=== PATIENT | male | born 1985 | race Caucasian/White ===

== ENCOUNTER 2017-04-30 16:47 | Emergency (ER) | payer OTHER ==
[~2017-04-30] VITALS: Wt 72.6 kg
[~2017-04-30 16:47] MED LIST: ALBUTEROL0.09 MG/AC IH; AMOXICILLIN500 M2 PO; AVIDOXY100 MG PO; DELTASONE20 M1 PO; FLEXERIL10 MG PO; FLOMAX0.4 MG PO; HYDROCODONE BIT1 T11 PO; IBU800 M1 PO; INHALER; KEFLEX500 M1 PO; MEDROL DOSEPAK4 MG PO; MOTRIN800 MG PO; NAPROSYN500 MG PO; NKHM; NORCO 325 MG-51 TAB PO; PARAFON FORTE500 MG PO; PENICILLIN VK500 MG PO; PREDNISONE10 MG PO; PROAIR HFA8.5 GM IH; PROZAC10 MG PO; ROBITUSSIN AC 110 ML PO; VIBRAMYCIN100 MG PO; WELLBUTRIN SR150 MG PO; ZITHROMAX250 MG PO
[2017-04-30] MEDS ORDERED: AMOXICILLIN500 M2 PO (17:19)
[2017-04-30] MEDS ORDERED: ZYRTEC10 MG PO (17:19)
[2017-04-30] MEDS ORDERED: MEDROL DOSEPAK4 MG PO (17:19)
== END 2017-04-30 17:25 | disposition home or self-care (01) ==
LOC: ED 16:47
DX: J40 Bronchitis, not specified as acute or chronic (principal); J45.909 Unspecified asthma, uncomplicated; Z79.899 Other long term (current) drug therapy

== ENCOUNTER 2017-06-12 20:20 | Emergency (ER) | payer OTHER ==
[~2017-06-12] VITALS: Ht 175.2 cm; Wt 77.1 kg
[~2017-06-12 20:20] MED LIST changes: +ZYRTEC10 MG PO
[2017-06-12 21:26] LABS: BASO % 0.5 % (0.0-1.0); EOS # 0.4 10*3/uL (0.0-0.4); EOS % 5.7 % (1.0-4.0); HEMATOCRIT 40.5 % (42.0-52.0); HEMOGLOBIN 13.6 g/dl (14.0-18.0); LYMPH % 31.1 % (27.0-41.0); MEAN CORPUSCULAR HGB 27.9 pg (27.0-31.0); MEAN CORPUSCULAR HGB CONC 33.6 g/dl (33.0-37.0); MEAN PLATELET VOLUME 9.8 fl (9.6-12.3); MONO # 0.5 10*3/uL (0.1-1.0); MONO % 7.3 % (3.0-9.0); NEUT # 3.5 10*3/uL (2.3-7.9); NEUT % 55.2 % (47.0-73.0); PLATELET COUNT AUTOMATED 218 10*3/uL (130-400); RED BLOOD COUNT 4.88 10*6/uL (4.50-5.90); RED CELL DISTRI WIDTH 13.2 % (0-14.5); WHITE BLOOD COUNT 6.3 10*3/uL (4.8-10.8)
[2017-06-12 21:41] LABS: ALBUMIN 3.9 gm/dl (3.1-4.5); ALKALINE PHOSPHATASE 114 U/L (45-117); BUN 7 mg/dl (7-24); CHLORIDE 104 mmol/L (98-107); CREATININE 1.03 mg/dL (0.70-1.30); POTASSIUM 3.5 mmol/L (3.5-5.1); SGOT/AST 16 IU/L (3-35); SGPT/ALT 22 U/L (12-78); SODIUM 139 mmol/L (136-145)
[2017-06-12] MEDS ORDERED: ZITHROMAX250 MG PO (22:13)
[2017-06-12] MEDS ORDERED: PREDNISONE10 MG PO (22:13)
== END 2017-06-12 22:43 | disposition home or self-care (01) ==
LOC: ED 20:20
PROVIDERS: Nurse Practitioner Family
DX: J40 Bronchitis, not specified as acute or chronic (principal); Z87.442 Personal history of urinary calculi; Z87.01 Personal history of pneumonia (recurrent); Z79.899 Other long term (current) drug therapy

== ENCOUNTER 2017-12-05 21:28 | Emergency (ER) | payer OTHER ==
[~2017-12-05] VITALS: Ht 175.2 cm; Wt 79.4 kg
== END 2017-12-05 22:46 | disposition home or self-care (01) ==
LOC: ED 21:28
DX: R51 Headache (principal); Z79.899 Other long term (current) drug therapy

== ENCOUNTER 2018-03-11 00:08 | Emergency (ER) | payer OTHER ==
[~2018-03-11] VITALS: Wt 77.1 kg
[2018-03-11] MEDS ORDERED: ZITHROMAX250 MG PO (01:34)
[2018-03-11] MEDS ORDERED: DELTASONE20 M1 PO (01:34)
[2018-03-11] MEDS ORDERED: PROAIR HFA8.5 GM INH (13:47)
== END 2018-03-11 01:41 | disposition home or self-care (01) ==
LOC: ED 00:08
DX: J40 Bronchitis, not specified as acute or chronic (principal); J45.909 Unspecified asthma, uncomplicated; Z79.899 Other long term (current) drug therapy

== ENCOUNTER 2018-05-06 20:52 | Emergency (ER) | payer OTHER ==
[~2018-05-06] VITALS: Ht 175.2 cm; Wt 74.8 kg
[~2018-05-06 20:52] MED LIST changes: +PROAIR HFA8.5 GM INH
== END 2018-05-06 21:59 | disposition home or self-care (01) ==
LOC: ED 20:52
DX: R51 Headache (principal); F17.200 Nicotine dependence, unspecified, uncomplicated; Z79.899 Other long term (current) drug therapy; Z87.442 Personal history of urinary calculi

== ENCOUNTER 2018-11-14 09:17 | Emergency (ER) | payer SELFPAY ==
[~2018-11-14] VITALS: Ht 175.2 cm; Wt 77.1 kg
[2018-11-14 10:11] LABS: BASO % 0.3 % (0.0-1.0); EOS # 0.1 10*3/uL (0.0-0.4); EOS % 1.5 % (1.0-4.0); HEMATOCRIT 44.7 % (42.0-52.0); HEMOGLOBIN 14.5 g/dl (14.0-18.0); LYMPH # 1.6 10*3/uL (1.3-4.4); LYMPH % 25.9 % (27.0-41.0); MEAN CELL VOLUME 85.5 fl (80.0-94.0); MEAN CORPUSCULAR HGB 27.7 pg (27.0-31.0); MEAN CORPUSCULAR HGB CONC 32.4 g/dl (33.0-37.0); MEAN PLATELET VOLUME 9.8 fl (9.6-12.3); MONO # 0.4 10*3/uL (0.1-1.0); MONO % 5.7 % (3.0-9.0); NEUT # 4.1 10*3/uL (2.3-7.9); NEUT % 66.4 % (47.0-73.0); PLATELET COUNT AUTOMATED 218 10*3/uL (130-400); RED BLOOD COUNT 5.23 10*6/uL (4.50-5.90); RED CELL DISTRI WIDTH 13.2 % (0-14.5); WHITE BLOOD COUNT 6.1 10*3/uL (4.8-10.8)
[2018-11-14 10:25] LABS: ALBUMIN 3.9 gm/dl (3.1-4.5); ALKALINE PHOSPHATASE 114 U/L (45-117); BUN 10 mg/dl (7-24); CHLORIDE 107 mmol/L (98-107); CREATININE 1.22 mg/dL (0.70-1.30); POTASSIUM 3.9 mmol/L (3.5-5.1); SGOT/AST 16 IU/L (3-35); SGPT/ALT 27 U/L (12-78); SODIUM 141 mmol/L (136-145); TOTAL PROTEIN 7.6 gm/dL (6.4-8.2)
== END 2018-11-14 09:24 | disposition home or self-care (01) ==
LOC: ED 09:17
PROVIDERS: Nurse Practitioner Family
DX: R51 Headache (principal); H53.149 Visual discomfort, unspecified; R11.2 Nausea with vomiting, unspecified; Z79.899 Other long term (current) drug therapy; Z79.2 Long term (current) use of antibiotics

== ENCOUNTER 2019-04-02 18:24 | Emergency (ER) | payer OTHER ==
[~2019-04-02] VITALS: Ht 175.2 cm; Wt 88.5 kg
[2019-04-02 18:55] LABS: BILIRUBIN NEGATIVE (NEGATIVE); BLOOD NEGATIVE (NEGATIVE); CLARITY CLEAR (CLEAR); COLOR YELLOW (YELLOW); GLUCOSE NEGATIVE (NEGATIVE); KETONE NEGATIVE (NEGATIVE); LEUKO ESTERASE NEGATIVE (NEGATIVE); NITRITE NEGATIVE (NEGATIVE); SPECIFIC GRAVITY 1.015 (1.005-1.030)
[2019-04-02 19:06] LABS: BACTERIA 1+
[2019-04-02 19:51] LABS: BASO % 0.5 % (0.0-1.0); EOS # 0.3 10*3/uL (0.0-0.4); HEMATOCRIT 43.6 % (42.0-52.0); LYMPH # 1.6 10*3/uL (1.3-4.4); LYMPH % 25.4 % (27.0-41.0); MEAN CELL VOLUME 85.3 fl (80.0-94.0); MEAN CORPUSCULAR HGB 27.4 pg (27.0-31.0); MEAN CORPUSCULAR HGB CONC 32.1 g/dl (33.0-37.0); MEAN PLATELET VOLUME 10.2 fl (9.6-12.3); MONO # 0.5 10*3/uL (0.1-1.0); MONO % 8.3 % (3.0-9.0); NEUT % 61.5 % (47.0-73.0); PLATELET COUNT AUTOMATED 236 10*3/uL (130-400); RED BLOOD COUNT 5.11 10*6/uL (4.50-5.90); RED CELL DISTRI WIDTH 13.8 % (0-14.5); WHITE BLOOD COUNT 6.4 10*3/uL (4.8-10.8)
[2019-04-02 20:07] LABS: ALBUMIN 3.6 gm/dl (3.1-4.5); ALKALINE PHOSPHATASE 91 U/L (45-117); BUN 17 mg/dl (7-24); CHLORIDE 108 mmol/L (98-107); CREATININE 1.29 mg/dL (0.70-1.30); POTASSIUM 3.8 mmol/L (3.5-5.1); SGOT/AST 41 IU/L (3-35); SGPT/ALT 84 U/L (12-78); SODIUM 140 mmol/L (136-145); TOTAL PROTEIN 7.2 gm/dL (6.4-8.2)
== END 2019-04-02 20:40 | disposition home or self-care (01) ==
LOC: ED 18:24
PROVIDERS: Nurse Practitioner Family
DX: S16.1XXA Strain of muscle, fascia and tendon at neck level, initial encounter (principal); S70.02XA Contusion of left hip, initial encounter; S20.212A Contusion of left front wall of thorax, initial encounter; S60.512A Abrasion of left hand, initial encounter; S00.81XA Abrasion of other part of head, initial encounter; M54.5 Low back pain; R10.32 Left lower quadrant pain; R10.12 Left upper quadrant pain; R20.0 Anesthesia of skin; R20.2 Paresthesia of skin; F17.200 Nicotine dependence, unspecified, uncomplicated; Z79.899 Other long term (current) drug therapy; Z79.2 Long term (current) use of antibiotics; V53.5XXA Driver of pick-up truck or van injured in collision with car, pick-up truck or van in traffic accident, initial encounter; Y93.I9 Activity, other involving external motion; Y92.488 Other paved roadways as the place of occurrence of the external cause; Y99.8 Other external cause status

== ENCOUNTER 2019-05-02 18:12 | Emergency (ER) | payer BC ==
[~2019-05-02] VITALS: Ht 175.2 cm; Wt 86.2 kg
--- NOTE | ~2019-05-02 | EKG ---
[place], [place] ELECTROCARDIOGRAM REPORT NAME: DINORAH DENNY UNIT #: [id number] ROOM: DOCTOR: ARSLAN DRAFT REPORT BIRTHDATE: [birth year] [facility] Test Date: 2019-05-02 Test Time: 18:17:37 Pat Name: DINORAH DENNY Department: Room: Gender: [employer]ceiving [employer]: : 1985 Requested By: DON VARGAS Order Number: [id number] Reading MD: Apolinar Wan MD Measurements Intervals [place] Rate: 68 P: 70 ME: 171 QRS: 24 QRSD: 95 T: 41 QT: 376 QTc: 400 Interpretive Statements Sinus rhythm ST elev, probable normal early repol pattern Electronically Signed On 05-06-2019 9:50:53 PDT by Apolinar Wan MD CM:EKGRPT:ELECTROCARDIOGRAM REPORT 1817 [id number] DON MIRANDA DRAFT REPORT DON VARGAS DO
[2019-05-02 18:40] LABS: BASO % 0.6 % (0.0-1.0); EOS # 0.5 10*3/uL (0.0-0.4); EOS % 6.3 % (1.0-4.0); HEMATOCRIT 43.8 % (42.0-52.0); HEMOGLOBIN 14.4 g/dl (14.0-18.0); LYMPH # 2.6 10*3/uL (1.3-4.4); LYMPH % 35.9 % (27.0-41.0); MEAN CELL VOLUME 83.6 fl (80.0-94.0); MEAN CORPUSCULAR HGB 27.5 pg (27.0-31.0); MEAN CORPUSCULAR HGB CONC 32.9 g/dl (33.0-37.0); MEAN PLATELET VOLUME 10.1 fl (9.6-12.3); MONO # 0.5 10*3/uL (0.1-1.0); NEUT # 3.6 10*3/uL (2.3-7.9); NEUT % 49.9 % (47.0-73.0); PLATELET COUNT AUTOMATED 221 10*3/uL (130-400); RED BLOOD COUNT 5.24 10*6/uL (4.50-5.90); RED CELL DISTRI WIDTH 13.2 % (0-14.5); WHITE BLOOD COUNT 7.2 10*3/uL (4.8-10.8)
[2019-05-02 18:55] LABS: ACT PARTIAL THROMBO TIME 27.8 SECONDS (20.0-32.1)
[2019-05-02 18:59] LABS: ALBUMIN 3.9 gm/dl (3.1-4.5); ALKALINE PHOSPHATASE 116 U/L (45-117); BUN 15 mg/dl (7-24); CHLORIDE 108 mmol/L (98-107); CREATININE 1.16 mg/dL (0.70-1.30); POTASSIUM 3.7 mmol/L (3.5-5.1); SGOT/AST 27 IU/L (3-35); SGPT/ALT 46 U/L (12-78); SODIUM 140 mmol/L (136-145); TOTAL PROTEIN 7.4 gm/dL (6.4-8.2)
[2019-05-02 19:04] LABS: TROPONIN I < 0.015 ng/ml (<0.045)
[2019-05-02] MEDS ORDERED: PROAIR HFA8.5 GM INH (20:00)
[2019-05-02] MEDS ORDERED: PREDNISONE10 MG PO (20:00)
== END 2019-05-02 21:05 | disposition home or self-care (01) ==
LOC: ED 18:12
PROVIDERS: Emergency Medicine
DX: J45.901 Unspecified asthma with (acute) exacerbation (principal); Z79.899 Other long term (current) drug therapy

== ENCOUNTER 2019-06-16 20:31 | Emergency (ER) | payer BC ==
[~2019-06-16] VITALS: Ht 175.2 cm; Wt 88.5 kg
[2019-06-16 20:50] LABS: BASO % 0.3 % (0.0-1.0); EOS # 0.4 10*3/uL (0.0-0.4); EOS % 3.7 % (1.0-4.0); HEMATOCRIT 43.3 % (42.0-52.0); HEMOGLOBIN 14.1 g/dl (14.0-18.0); LYMPH # 1.3 10*3/uL (1.3-4.4); MEAN CELL VOLUME 84.6 fl (80.0-94.0); MEAN CORPUSCULAR HGB 27.5 pg (27.0-31.0); MEAN CORPUSCULAR HGB CONC 32.6 g/dl (33.0-37.0); MEAN PLATELET VOLUME 9.6 fl (9.6-12.3); MONO # 0.8 10*3/uL (0.1-1.0); MONO % 8.2 % (3.0-9.0); NEUT # 6.9 10*3/uL (2.3-7.9); NEUT % 73.5 % (47.0-73.0); PLATELET COUNT AUTOMATED 227 10*3/uL (130-400); RED BLOOD COUNT 5.12 10*6/uL (4.50-5.90); RED CELL DISTRI WIDTH 13.7 % (0-14.5); WHITE BLOOD COUNT 9.4 10*3/uL (4.8-10.8)
[2019-06-16 21:00] LABS: ACT PARTIAL THROMBO TIME 27.1 SECONDS (20.0-32.1)
[2019-06-16 21:28] LABS: ALBUMIN 3.5 gm/dl (3.1-4.5); ALKALINE PHOSPHATASE 107 U/L (45-117); BUN 12 mg/dl (7-24); CHLORIDE 107 mmol/L (98-107); CREATININE 1.24 mg/dL (0.70-1.30); SGOT/AST 30 IU/L (3-35); SGPT/ALT 55 U/L (12-78); SODIUM 139 mmol/L (136-145); TOTAL PROTEIN 7.2 gm/dL (6.4-8.2); TROPONIN I < 0.015 ng/ml (<0.045)
[2019-06-17] MEDS ORDERED: GUAIFEN-CODEINE5 ML PO (00:42)
== END 2019-06-17 00:50 | disposition home or self-care (01) ==
LOC: ED 20:31
PROVIDERS: Emergency Medicine
DX: J45.909 Unspecified asthma, uncomplicated (principal); R07.89 Other chest pain; Z79.899 Other long term (current) drug therapy

== ENCOUNTER 2020-02-22 00:09 | Emergency (ER) | payer BC ==
[~2020-02-22] VITALS: Ht 175.2 cm; Wt 86.2 kg
[~2020-02-22 00:09] MED LIST changes: +GUAIFEN-CODEINE5 ML PO
== END 2020-02-22 01:11 | disposition home or self-care (01) ==
LOC: ED 00:09
DX: S05.02XA Injury of conjunctiva and corneal abrasion without foreign body, left eye, initial encounter (principal); Z79.899 Other long term (current) drug therapy; X58.XXXA Exposure to other specified factors, initial encounter; Y93.89 Activity, other specified; Y92.89 Other specified places as the place of occurrence of the external cause; Y99.8 Other external cause status

== ENCOUNTER 2020-09-29 22:02 | Emergency (ER) | payer BC | END 2020-09-29 23:50 | disposition home or self-care (01) | LOC: ED 22:02 | DX: R51.9 Headache, unspecified (principal); R11.0 Nausea; J45.909 Unspecified asthma, uncomplicated; F32.9 Major depressive disorder, single episode, unspecified; Z79.899 Other long term (current) drug therapy ==

== ENCOUNTER 2020-10-15 20:52 | Emergency (ER) | payer BC ==
[~2020-10-15] VITALS: Ht 175.2 cm; Wt 86.2 kg
== END 2020-10-15 23:41 | disposition home or self-care (01) ==
LOC: ED 20:52
DX: G43.909 Migraine, unspecified, not intractable, without status migrainosus (principal); F32.9 Major depressive disorder, single episode, unspecified; J45.909 Unspecified asthma, uncomplicated; Z87.442 Personal history of urinary calculi; Z79.899 Other long term (current) drug therapy

== ENCOUNTER 2020-11-28 05:57 | Emergency (ER) | payer BC ==
[~2020-11-28] VITALS: Ht 175.2 cm; Wt 81.6 kg
[2020-11-28] MEDS ORDERED: TYLENOL325 M1 PO (08:07)
[2020-11-28] MEDS ORDERED: NAPROSYN500 MG PO (08:07)
[2020-11-28] MEDS ORDERED: CYCLOBENZAPRINE10 MG PO (08:07)
== END 2020-11-28 08:44 | disposition home or self-care (01) ==
LOC: ED 05:57
DX: M54.12 Radiculopathy, cervical region (principal); J45.909 Unspecified asthma, uncomplicated; G43.909 Migraine, unspecified, not intractable, without status migrainosus; Z79.899 Other long term (current) drug therapy

== ENCOUNTER 2021-01-07 05:42 | Emergency (ER) | payer BC ==
[~2021-01-07] VITALS: Ht 175.2 cm; Wt 83.9 kg
[~2021-01-07 05:42] MED LIST changes: +CYCLOBENZAPRINE10 MG PO; +TYLENOL325 M1 PO
[2021-01-07] MEDS ORDERED: DOXYCYCLINE100 MG PO (06:48)
[2021-01-07] MEDS ORDERED: COMPLETE ALLERG25 M2 PO (06:48)
== END 2021-01-07 07:18 | disposition home or self-care (01) ==
LOC: ED 05:42
DX: S20.362A Insect bite (nonvenomous) of left front wall of thorax, initial encounter (principal); G43.909 Migraine, unspecified, not intractable, without status migrainosus; Z87.891 Personal history of nicotine dependence; Z98.890 Other specified postprocedural states; W57.XXXA Bitten or stung by nonvenomous insect and other nonvenomous arthropods, initial encounter; Y93.89 Activity, other specified; Y92.89 Other specified places as the place of occurrence of the external cause; Y99.8 Other external cause status

== ENCOUNTER → 2021-06-26 | Outpatient (CLI) | payer BC ==
[~2021-06-26] MED LIST changes: +COMPLETE ALLERG25 M2 PO; +DOXYCYCLINE100 MG PO
[2021-06-26 09:36] LABS: MEAN CELL VOLUME 83.8 fl (80.0-94.0); MEAN CORPUSCULAR HGB 27.1 pg (27.0-31.0); MEAN CORPUSCULAR HGB CONC 32.3 g/dl (33.0-37.0); MEAN PLATELET VOLUME 10.1 fl (9.6-12.3); RED BLOOD COUNT 5.73 10*6/uL (4.50-5.90); RED CELL DISTRI WIDTH 12.6 % (0-14.5); WHITE BLOOD COUNT 7.5 10*3/uL (4.8-10.8)
[2021-06-26 09:52] LABS: ALBUMIN 3.9 gm/dl (3.1-4.5); ALKALINE PHOSPHATASE 104 U/L (45-117); BUN 12 mg/dl (7-24); CHLORIDE 109 mmol/L (98-107); CHOLESTEROL 213 mg/dL (<200); CREATININE 1.27 mg/dL (0.70-1.30); LDL CHOLESTEROL 141 mg/dL (9-159); POTASSIUM 4.2 mmol/L (3.5-5.1); SGOT/AST 29 IU/L (3-35); SGPT/ALT 45 U/L (12-78); SODIUM 138 mmol/L (136-145); TOTAL PROTEIN 7.5 gm/dL (6.4-8.2); TRIGLYCERIDES 62 mg/dl (<150)
== END | disposition home or self-care (01) ==
LOC: LAB 08:31
PROVIDERS: ATTEND Family Medicine
DX: Z00.00 Encounter for general adult medical examination without abnormal findings (principal); I10 Essential (primary) hypertension

== ENCOUNTER → 2021-08-01 | Outpatient (CLI) | payer BC ==
[2021-08-01 15:36] LABS: FREE T4 0.97 ng/dl (0.76-1.46)
[2021-08-01 15:42] LABS: THYROID STIM HORMONE (HS) 1.65 uIU/ml (0.358-4.75)
== END | disposition home or self-care (01) ==
LOC: LAB 14:51
PROVIDERS: ATTEND Family Medicine
DX: Z00.00 Encounter for general adult medical examination without abnormal findings (principal); I10 Essential (primary) hypertension; E29.1 Testicular hypofunction

== ENCOUNTER 2021-08-19 23:27 | Emergency (ER) | payer BC ==
[~2021-08-19] VITALS: Ht 175.2 cm; Wt 86.2 kg
[2021-08-20] MEDS ORDERED: ATIVAN0.5 MG PO (00:28)
== END 2021-08-20 02:55 | disposition home or self-care (01) ==
LOC: ED 23:27
DX: F41.9 Anxiety disorder, unspecified (principal)

== ENCOUNTER 2021-08-20 02:49 | Emergency (ER) | payer BC ==
[~2021-08-20] VITALS: Ht 175.2 cm; Wt 86.2 kg
[~2021-08-20 02:49] MED LIST changes: +ATIVAN0.5 MG PO
[2021-08-20 03:16] LABS: BASO % 0.4 % (0.0-1.0); EOS # 0.1 10*3/uL (0.0-0.4); EOS % 1.3 % (1.0-4.0); HEMATOCRIT 43.8 % (42.0-52.0); LYMPH # 1.6 10*3/uL (1.3-4.4); LYMPH % 23.9 % (27.0-41.0); MEAN CELL VOLUME 84.9 fl (80.0-94.0); MEAN CORPUSCULAR HGB 27.3 pg (27.0-31.0); MEAN CORPUSCULAR HGB CONC 32.2 g/dl (33.0-37.0); MEAN PLATELET VOLUME 9.8 fl (9.6-12.3); MONO # 0.4 10*3/uL (0.1-1.0); MONO % 5.6 % (3.0-9.0); NEUT # 4.6 10*3/uL (2.3-7.9); NEUT % 68.5 % (47.0-73.0); PLATELET COUNT AUTOMATED 228 10*3/uL (130-400); RED BLOOD COUNT 5.16 10*6/uL (4.50-5.90); RED CELL DISTRI WIDTH 13.6 % (0-14.5); WHITE BLOOD COUNT 6.8 10*3/uL (4.8-10.8)
[2021-08-20 03:30] LABS: ALBUMIN 4.1 gm/dl (3.1-4.5); ALKALINE PHOSPHATASE 116 U/L (45-117); BUN 7 mg/dl (7-24); CHLORIDE 108 mmol/L (98-107); CREATININE 1.22 mg/dL (0.70-1.30); POTASSIUM 3.5 mmol/L (3.5-5.1); SGOT/AST 27 IU/L (3-35); SGPT/ALT 43 U/L (12-78); SODIUM 140 mmol/L (136-145); TOTAL PROTEIN 7.6 gm/dL (6.4-8.2)
[2021-08-20 03:32] LABS: ACETAMINOPHEN (TYLENOL) < 5.0 ug/ml (10-30); ETHYL ALCOHOL < 3.0 mg/dl (<3)
[2021-08-20 10:52] LABS: BILIRUBIN Negative (Negative); BLOOD Negative (Negative); CLARITY Clear (Clear); COLOR Yellow (Yellow); GLUCOSE Negative (Negative); KETONE Negative (Negative); LEUKO ESTERASE Negative (Negative); NITRITE Negative (Negative); PH 6.5 (4.5-8.0); UROBILINOGEN 0.2 E.U./dl (0.0-1.0)
[2021-08-20 11:02] LABS: BACTERIA TRACE; EPITHELIAL CELLS 0-2; MUCOUS 1+; URINE AMPHETAMINES < 1000 (1000ng/ml); URINE BARBITURATES < 200 (200ng/ml); URINE BENZODIAZEPINES < 200 (200ng/ml); URINE CANNABINOIDS (THC) < 50 (50ng/ml); URINE COCAINE < 300 (300ng/ml); URINE METHADONE < 300 (300ng/ml); URINE OPIATES < 300 (300ng/ml)
[2021-08-20 11:04] LABS: URINE PHENCYCLIDINE < 25 (25ng/ml)
== END 2021-08-20 12:05 | disposition home or self-care (01) ==
LOC: ED 02:49
PROVIDERS: Emergency Medicine
DX: F43.20 Adjustment disorder, unspecified (principal); F41.9 Anxiety disorder, unspecified; Z79.2 Long term (current) use of antibiotics; Z79.899 Other long term (current) drug therapy

== ENCOUNTER → 2022-03-24 | Outpatient (CLI) | payer BC ==
[2022-03-24 17:44] LABS: HEMATOCRIT 40.7 % (42.0-52.0); MEAN CELL VOLUME 86.4 fl (80.0-94.0); MEAN CORPUSCULAR HGB 28.7 pg (27.0-31.0); MEAN CORPUSCULAR HGB CONC 33.2 g/dl (33.0-37.0); MEAN PLATELET VOLUME 9.8 fl (9.6-12.3); RED BLOOD COUNT 4.71 10*6/uL (4.50-5.90); RED CELL DISTRI WIDTH 12.9 % (0-14.5); WHITE BLOOD COUNT 5.9 10*3/uL (4.8-10.8)
[2022-03-24 18:04] LABS: ALKALINE PHOSPHATASE 98 U/L (45-117); BUN 13 mg/dl (7-24); CHLORIDE 108 mmol/L (98-107); CHOLESTEROL 230 mg/dL (<200); CREATININE 1.28 mg/dL (0.70-1.30); LDL CHOLESTEROL 146 mg/dL (9-159); POTASSIUM 3.6 mmol/L (3.5-5.1); SGOT/AST 26 IU/L (3-35); SGPT/ALT 41 U/L (12-78); SODIUM 137 mmol/L (136-145); TRIGLYCERIDES 184 mg/dl (<150)
[2022-03-24 18:25] LABS: VITAMIN D, 25-HYDROXY 15.3 ng/mL (30-100)
[2022-03-29 22:05] LABS: TESTOSTERONE FREE, (DIRECT) 5.4 pg/mL (8.7-25.1)
== END | disposition home or self-care (01) ==
LOC: LAB 17:11
PROVIDERS: ATTEND Family Medicine
DX: F41.1 Generalized anxiety disorder (principal); F39 Unspecified mood [affective] disorder; R53.83 Other fatigue; E55.9 Vitamin D deficiency, unspecified; E74.00 Glycogen storage disease, unspecified

== ENCOUNTER 2022-07-22 02:46 | Emergency (ER) | payer BC ==
[~2022-07-22] VITALS: Ht 175.2 cm; Wt 93.0 kg
[2022-07-22] MEDS ORDERED: ESCITALOPRAM OX20 MG PO (03:00)
[2022-07-22] MEDS ORDERED: LAMOTRIGINE100 MG PO (03:00)
[2022-07-22] MEDS ORDERED: TESTOSTERO200 MG/1 M IM (03:01)
[2022-07-22] MEDS ORDERED: LOSARTAN POTAS100 M1 PO (03:01)
[2022-07-22] MEDS ORDERED: CLINDAMYCIN HC300 MG PO (03:15)
[2022-07-22] MEDS ORDERED: PREDNISONE20 M1 PO (03:15)
== END 2022-07-22 03:45 | disposition home or self-care (01) ==
LOC: ED 02:46
DX: R59.0 Localized enlarged lymph nodes (principal); Z79.899 Other long term (current) drug therapy

== ENCOUNTER 2022-12-25 00:18 | Emergency (ER) | payer SELFPAY ==
[~2022-12-25] VITALS: Ht 175.2 cm; Wt 88.5 kg
[~2022-12-25 00:18] MED LIST changes: +CLINDAMYCIN HC300 MG PO; +ESCITALOPRAM OX20 MG PO; +LAMOTRIGINE100 MG PO; +LOSARTAN POTAS100 M1 PO; +PREDNISONE20 M1 PO; +TESTOSTERO200 MG/1 M IM
== END 2022-12-25 01:41 | disposition home or self-care (01) ==
LOC: ED 00:18
DX: F41.9 Anxiety disorder, unspecified (principal); R00.2 Palpitations; Z79.899 Other long term (current) drug therapy

== ENCOUNTER 2023-02-20 10:20 | Emergency (ER) | payer BC ==
[~2023-02-20] VITALS: Ht 175.2 cm; Wt 97.5 kg
[2023-02-20 11:52] LABS: BASO % 0.6 % (0.0-1.0); EOS # 0.1 10*3/uL (0.0-0.4); EOS % 1.7 % (1.0-4.0); HEMATOCRIT 45.5 % (42.0-52.0); LYMPH # 1.7 10*3/uL (1.3-4.4); LYMPH % 35.1 % (27.0-41.0); MEAN CELL VOLUME 85.5 fl (80.0-94.0); MEAN CORPUSCULAR HGB 27.3 pg (27.0-31.0); MEAN CORPUSCULAR HGB CONC 31.9 g/dl (33.0-37.0); MEAN PLATELET VOLUME 10.1 fl (9.6-12.3); MONO # 0.5 10*3/uL (0.1-1.0); MONO % 9.3 % (3.0-9.0); NEUT # 2.6 10*3/uL (2.3-7.9); NEUT % 53.1 % (47.0-73.0); PLATELET COUNT AUTOMATED 210 10*3/uL (130-400); RED BLOOD COUNT 5.32 10*6/uL (4.50-5.90); RED CELL DISTRI WIDTH 13.4 % (0-14.5); WHITE BLOOD COUNT 4.8 10*3/uL (4.8-10.8)
[2023-02-20 12:14] LABS: ALKALINE PHOSPHATASE 108 U/L (46-116); BUN 12 mg/dl (9-23); CHLORIDE 100 mmol/L (98-107); LIPASE 31 U/L (12-53); POTASSIUM 3.8 mmol/L (3.4-5.1); SGPT/ALT 41 U/L (10-49); TOTAL PROTEIN 7.5 gm/dL (6.0-8.0)
[2023-02-20 12:28] LABS: BILIRUBIN Negative (Negative); BLOOD 3+ (Negative); CLARITY Clear (Clear); COLOR Yellow (Yellow); GLUCOSE Negative (Negative); KETONE Negative (Negative); LEUKO ESTERASE Trace (Negative); NITRITE Negative (Negative); PH 5.5 (4.5-8.0); SPECIFIC GRAVITY >= 1.030 (1.001-1.030)
[2023-02-20 13:14] LABS: RBC TNTC rbc/hpf (0-2)
[2023-02-20] MEDS ORDERED: PERCOCET 5-3251 EACH PO (15:47)
[2023-02-20] MEDS ORDERED: ONDANSETRON4 MG SL (15:47)
[2023-02-20] MEDS ORDERED: Motrin,Rufen800 MG PO (15:47)
[2023-02-20] MEDS ORDERED: FLOMAX0.4 MG PO (15:47)
== END 2023-02-20 15:53 | disposition home or self-care (01) ==
LOC: ED 10:20
PROVIDERS: Emergency Medicine
DX: R10.9 Unspecified abdominal pain (principal); R31.9 Hematuria, unspecified; F32.A Depression, unspecified; J45.909 Unspecified asthma, uncomplicated; I10 Essential (primary) hypertension; Z87.442 Personal history of urinary calculi; G43.909 Migraine, unspecified, not intractable, without status migrainosus; Z98.890 Other specified postprocedural states

== ENCOUNTER → 2023-04-12 | Outpatient (CLI) | payer BC ==
[~2023-04-12] MED LIST changes: +Motrin,Rufen800 MG PO; +ONDANSETRON4 MG SL; +PERCOCET 5-3251 EACH PO
[2023-04-12 10:38] LABS: HEMATOCRIT 45.2 % (42.0-52.0); MEAN CELL VOLUME 83.5 fl (80.0-94.0); MEAN CORPUSCULAR HGB 27.7 pg (27.0-31.0); MEAN CORPUSCULAR HGB CONC 33.2 g/dl (33.0-37.0); MEAN PLATELET VOLUME 9.5 fl (9.6-12.3); RED BLOOD COUNT 5.41 10*6/uL (4.50-5.90); RED CELL DISTRI WIDTH 13.2 % (0-14.5); WHITE BLOOD COUNT 6.4 10*3/uL (4.8-10.8)
[2023-04-12 11:04] LABS: ALKALINE PHOSPHATASE 113 U/L (46-116); BUN 8 mg/dl (9-23); CHLORIDE 108 mmol/L (98-107); CPK 98 U/L (34-171); POTASSIUM 3.8 mmol/L (3.4-5.1); SGPT/ALT 22 U/L (10-49); TOTAL PROTEIN 7.5 gm/dL (6.0-8.0)
[2023-04-12 11:17] LABS: VITAMIN D, 25-HYDROXY 24.8 ng/mL (30-100)
[2023-04-13 05:06] LABS: HBSAG Negative (Negative); HEP B CORE AB, IGM Negative (Negative); HEPATITIS C ANTIBODY Non Reactive (Non Reactive)
== END | disposition home or self-care (01) ==
LOC: LAB 10:17
PROVIDERS: ATTEND Family Medicine
DX: E55.9 Vitamin D deficiency, unspecified (principal); M79.10 Myalgia, unspecified site; M79.673 Pain in unspecified foot; M79.642 Pain in left hand; M79.641 Pain in right hand; E03.9 Hypothyroidism, unspecified; I10 Essential (primary) hypertension